=== PATIENT | female | born 1960 | race Hispanic/Latino ===

== ENCOUNTER 2018-12-24 14:57 | Emergency (ER) | payer MEDICARE ==
[2018-12-24 15:38] VITALS: PULSE 104; RESP 18; TEMP 98.2; O2SAT 99
[2018-12-24 15:42] VITALS: BP 101/72
--- NOTE | 2018-12-24 16:07 | C.PDOC ---
History Of Present Illness 58 year old female presents to ED with complaint of left lower dental pain for the past 3 days. Patient states she did not got to see her dentist. Patient denies trauma, injuries, fever, discharge in the mouth. Time Seen by Provider: 12/24/18 15:44 Chief Complaint (Nursing): Dental Pain History Per: Patient History/Exam Limitations: no limitations Onset/Duration Of Symptoms: Days (3) Current Symptoms Are (Timing): Still Present Quality: Positive for: "Pain" Past Medical History Reviewed: Historical Data, Nursing Documentation, Vital Signs Vital Signs: Last Vital Signs Temp 98.2 F 12/24/18 15:35 Pulse 104 H 12/24/18 15:35 Resp 18 12/24/18 15:35 BP 101/72 12/24/18 15:35 Pulse Ox 99 12/24/18 15:35 - Medical History PMH: Bipolar Disorder, Depression, Diabetes, HTN Denies: Hepatitis, HIV, Seizures, Sexually Transmitted Disease Surgical History: No Surg Hx - [facility] Procedures INJECT/INFUSE NEC (03/09/14) Family History: States: Unknown Family Hx - Social History Hx Tobacco Use: Yes Hx Alcohol Use: No Hx Substance Use: No - Immunization History Hx Tetanus Toxoid Vaccination: No Hx Influenza Vaccination: Yes Hx Pneumococcal Vaccination: No Review Of Systems Constitutional: Negative for: Fever, Chills, Weakness ENT: Positive for: Other (left lower dental pain, no discharge) Physical Exam - Physical Exam Appears: Non-toxic, Other (mild- moderate pain) Skin: Normal Color, Warm, Dry Head: Atraumatic, Normacephalic Tongue: No Swelling Lips: No Swelling Teeth: Normal Dentition Gingiva: Swelling (at teeth 18 and 19, tender to palpation, no fluctuance) Throat: Normal, No Erythema, No Exudate Neck: Normal ROM, Supple Chest: Symmetrical, No Deformity, Tenderness Cardiovascular: No Murmur Respiratory: No Accessory Muscle Use Neurological/Psych: Oriented x3, Normal Speech, Normal Cognition ED Course And Treatment O2 Sat by Pulse Oximetry: 99 (in RA) Progress Note: Patient given Penicillin and Toradol. Patient told to follow up with dentist. Re-evaluation. Patient feels better. Discussed plan with patient who expresses understanding. All questions answered and there is agreement with the plan to discharge home with instructions. Patient stable for discharge. Return if symptoms persist or worsen. Disposition Counseled Patient/Family Regarding: Diagnosis, Need For Followup, Rx Given - Disposition [facility] Disposition: HOME/ ROUTINE Disposition Time: 16:20 Condition: STABLE Additional Instructions: FOLLOW UP WITH DENTIST WITHIN 1 WEEK USE MEDICATIONS DIRECTED RETURN TO ER IF SYMPTOMS WORSEN Prescriptions: Lidocaine 2% Viscous 15 ml MM Q4 PRN #1 bottle PRN Reason: Pain Naproxen [Naprosyn] 1 tab PO BID PRN #25 tab PRN Reason: Pain Penicillin VK [Penicillin VK Tab] 1 tab PO Q6 #28 tab Instructions: Tooth Abscess (DC), Dental Pain (DC) Forms: [employer] (Mongolian) Print Language: ROMANIAN - Clinical Impression Clinical Impression: Dental abscess, Pain, dental - Scribe Statement The provider has reviewed the documentation as recorded by the Scribe (Phyllis White) All medical record entries made by the Scribe were at my direction and personally dictated by me. I have reviewed the chart and agree that the record accurately reflects my personal performance of the history, physical exam, medical decision making, and the department course for this patient. I have also personally directed, reviewed, and agree with the discharge instructions and disposition.
[2018-12-24] MEDS ORDERED: Amoxicillin-Clav 500-125 mg Tab PO ONE (16:18)
== END 2018-12-24 16:30 | disposition home or self-care (01) ==
LOC: C.ER 14:57
DX: K04.7 Periapical abscess without sinus (principal); K08.89 Other specified disorders of teeth and supporting structures
CPT/HCPCS: 96372; 99283; J1885